=== PATIENT | female | born 1945 | race Caucasian/White ===

== ENCOUNTER → 2017-11-04 14:54 | Outpatient (CLI) | payer MEDICARE | END | disposition home or self-care (01) | LOC: D.CT 14:54 | DX: M25.551 Pain in right hip (principal); R10.2 Pelvic and perineal pain ==

== ENCOUNTER → 2017-12-12 13:49 | Outpatient (CLI) | payer MEDICARE | END | disposition home or self-care (01) | LOC: D.CT 13:49 | DX: R10.2 Pelvic and perineal pain (principal) ==

== ENCOUNTER → 2018-03-29 09:05 | Outpatient (CLI) | payer MEDICARE | END | disposition home or self-care (01) | LOC: D.US 03-24 09:30 | DX: I12.9 Hypertensive chronic kidney disease with stage 1 through stage 4 chronic kidney disease, or unspecified chronic kidney disease (principal); N18.4 Chronic kidney disease, stage 4 (severe); N25.81 Secondary hyperparathyroidism of renal origin; D64.9 Anemia, unspecified; Z68.26 Body mass index [BMI] 26.0-26.9, adult ==

== ENCOUNTER → 2018-05-31 11:02 | Outpatient (CLI) | payer MEDICARE | END | disposition home or self-care (01) | LOC: D.CT 11:02 | DX: R07.9 Chest pain, unspecified (principal); S22.32XA Fracture of one rib, left side, initial encounter for closed fracture ==

== ENCOUNTER → 2018-06-26 13:17 | Outpatient (CLI) | payer MEDICARE | END | disposition home or self-care (01) | LOC: D.CT 13:17 | DX: N18.9 Chronic kidney disease, unspecified (principal) ==

== ENCOUNTER → 2018-11-06 08:43 | Outpatient (CLI) | payer MEDICARE ==
--- NOTE | 2018-11-07 11:19 | EC ---
PATIENT:MARLENY LOCKE DATE OF SERVICE: 11/06/18 SEX: F MEDICAL RECORD: [id number] DATE OF : 43 LOCATION:[facility] AGE OF PATIENT: 73 ADMISSION DATE: 11/06/18 REFERRING PHYSICIAN: INTERPRETING PHYSICIAN: ALAN FENG MD ECHOCARDIOGRAM REPORT ECHO CHARGES 4 ECHO COMPLETE Date: 11/06/18 CLINICAL DIAGNOSIS: HTN ECHOCARDIOGRAPHIC MEASUREMENTS (adult normal given) AC root (d.<3.7cm) 3.5 cm LV Septum d (<1.2 cm> 1.1 cm Valve Excursion 1.8 cm LV Septum (systole) 1.6 cm Left Atria (s.<4.0cm> 2.4 cm LVPW d(<1.2cm) 1.1 cm RV (d.<2.3cm) 2.0 cm LVPW (sytole) 1.9 cm LV diastole(<5.6CM) 4.8 cm MV E-F(>70mm/sec) cm LV systole 2.5 cm LVOT Diameter 1.7 cm MV exc.(>10mm) cm Est.ejection fraction (50-75%) % DOPPLER: LVIT cm/sec A 103 cm/sec E 77.0 cm/sec LA cm/sec RVSP 45.0 mmHg LVOT 137 cm/sec AOP1/2T m/s Asc. Ao 152 cm/sec RVOT 83.0 cm/sec RA cm/sec PA 83.0 cm/sec AV Gradient Peak 9.3 mmHg AV Mean 4.0 mmHg AV Area 1.9 cm MV Gradient Peak 4.4 mmHg MV Mean 2.0 mmHg MV Area cm COMMENTS: Heel Coverer Machine Operator: Anjana HONGOE Die Grinder: 1 Dr. Feng TAPE# PACS Pericardial Effusion N DATE OF SERVICE: 11/06/2018 ECHOCARDIOGRAM DATE OF SERVICE: 11/06/2018 FINDINGS: 1. Left ventricular chamber size is within normal limits. Left ventricular systolic function is normal. Overall ejection fraction estimated at 60%. 2. Left atrium, right atrium, and right ventricle chamber sizes are within ECHOCARDIOGRAM REPORT [id number] MARLENY LOCKE normal limits. 3. Valvular structures have normal structure and motion. 4. Doppler interrogation reveals mild mitral regurgitation, moderate tricuspid regurgitation, no other valvular insufficiency or stenosis. Pulmonary systolic pressure is estimated at 45 mmHg. 5. No evidence of pericardial effusion or left ventricular thrombus. TRANSINT:[id number] Voice Confirmation ID: [id number] DOCUMENT ID: [id number] ALAN FENG MD at 1119 CC: [id number] DICTATION DATE: 11/06/18 1235 CUSTODIAL FOREMAN: 11/06/18 1246 DEP CLI 11/06/18 [place] [id number] [place] [id number]
== END | disposition home or self-care (01) ==
LOC: D.ECHO 08:43
DX: R60.9 Edema, unspecified (principal); I12.9 Hypertensive chronic kidney disease with stage 1 through stage 4 chronic kidney disease, or unspecified chronic kidney disease; N18.3 Chronic kidney disease, stage 3 (moderate); D64.9 Anemia, unspecified; N25.81 Secondary hyperparathyroidism of renal origin

== ENCOUNTER → 2020-05-01 09:50 | Outpatient (CLI) | payer MEDICARE | END | disposition home or self-care (01) | LOC: D.MRI 09:50 | PROVIDERS: ATTEND Family Medicine | DX: M41.25 Other idiopathic scoliosis, thoracolumbar region (principal) ==

== ENCOUNTER → 2020-11-12 13:00 | Outpatient (CLI) | payer MEDICARE | END | disposition home or self-care (01) | LOC: D.HCCECHO 13:00 | PROVIDERS: ATTEND Internal Medicine Cardiovascular Disease | DX: R06.09 Other forms of dyspnea (principal) ==